=== PATIENT | female | born 1940 | race Caucasian/White ===

== ENCOUNTER → 2016-02-24 | Outpatient (CLI) | payer MEDICARE, OTHER ==
[2016-02-24 16:03] LABS: AUTOMATED NEUTROPHIL # 4.2 TH/MM3 (1.8-7.7); BASOPHIL % 0.3 % (0.0-2.0); EOSINOPHIL # 0.1 TH/MM3 (0-0.4); EOSINOPHIL % 1.7 % (0.0-4.0); HEMO FLAGS DIFF FINAL; LYMPH % 23.1 % (9.0-44.0); LYMPHOCYTE # 1.4 TH/MM3 (1.0-4.8); MEAN CELL VOLUME 95.2 FL (80.0-100.0); MEAN CORPUSCULAR HEMOGLOBIN 32.1 PG (27.0-34.0); MEAN CORPUSCULAR HGB CONC 33.8 % (32.0-36.0); MONO % 7.3 % (0.0-8.0); NEUT % 67.6 % (16.0-70.0); PLATELET COUNT 248 TH/MM3 (150-450); RED BLOOD COUNT 4.41 MIL/MM3 (4.00-5.30); RED CELL DISTRIBUTION WIDTH 13.6 % (11.6-17.2); WHITE BLOOD COUNT 6.3 TH/MM3 (4.0-11.0)
[2016-02-24 16:16] LABS: ALT (GPT) 31 U/L (10-53); ANION GAP 8 MEQ/L (5-15); AST (GOT) 16 U/L (15-37); BICARBONATE 27.8 MEQ/L (21.0-32.0); BLOOD UREA NITROGEN 13 MG/DL (7-18); CHLORIDE 105 MEQ/L (98-107); GLOMERULAR FILTRATION RATE 70 ML/MIN (>89); IMMUNOGLOBULIN A 65 MG/DL (90-497); POTASSIUM 4.1 MEQ/L (3.5-5.1); SODIUM (NA) 141 MEQ/L (136-145)
[2016-02-24 16:26] LABS: ALKALINE PHOSPHATASE 48 U/L (45-117); IMMUNOGLOBULIN G 1360 MG/DL (650-1610); IMMUNOGLOBULIN M 33 MG/DL (42-255); TOTAL BILIRUBIN ADULT 0.4 MG/DL (0.2-1.0)
[2016-02-24 16:41] LABS: CREATINE KINASE 72 U/L (26-192)
[2016-02-24 17:15] LABS: WESTERGREN SEDIMENTATION RATE 17 mm/hr (0-30)
== END ==
LOC: PLAB 13:57
PROVIDERS: ATTEND Family Medicine
DX: M79.1 Myalgia (principal); D47.2 Monoclonal gammopathy
CPT/HCPCS: 36415; 80053; 82550; 82784; 85025; 85652; 86141